=== PATIENT | female | born 1985 | race Caucasian/White ===

== ENCOUNTER 2019-10-20 11:31 | Observation (INO) | payer OTHER ==
[~2019-10-20] VITALS: Ht 157.5 cm; Wt 79.4 kg
[2019-10-20] MEDS ORDERED: PREN-380 PO (11:51)
[2019-10-20 13:29] VITALS: BP 104/60
[2019-10-20 13:42] LABS: BASOPHILS % (AUTO) 0.2 % (0.0-2.0); EOSINOPHILS # (AUTO) 0.1 K/uL (0-0.4); EOSINOPHILS % (AUTO) 0.6 % (0.0-4.0); HEMATOCRIT 35.5 % (36-48); LYMPHOCYTES # (AUTO) 2.2 K/uL (2.5-16.5); LYMPHOCYTES % (AUTO) 24.3 % (20.5-51.1); MEAN CORPUSCULAR HEMOGLOBIN 30 pg (27-31); MEAN CORPUSCULAR HGB CONC 34 g/dL (33-37); MEAN CORPUSCULAR VOLUME 87.9 fL (80-94); MONOCYTES # (AUTO) 0.3 K/uL (0.8-1.0); MONOCYTES % (AUTO) 3.7 % (1.7-9.3); NEUTROPHILS # (AUTO) 6.4 K/uL (1.8-7.7); NEUTROPHILS % (AUTO) 71.2 % (42.2-75.2); PLATELET COUNT (AUTO) 243 K/uL (140-450); RED BLOOD CELL COUNT(AUTO) 4.04 MIL/uL (4.20-5.40); RED CELL DISTRIBUTION WIDTH 14.1 % (11.6-13.7); WHITE BLOOD COUNT (AUTO) 8.9 K/uL (4.8-10.8)
[2019-10-20 13:47] LABS: APPEARANCE,URINE CLEAR (CLEAR); BILIRUBIN,URINE NEGATIVE (NEGATIVE); BLOOD, URINE NEGATIVE (NEGATIVE); COLOR,URINE ORANGE (YELLOW); LEUKOCYTE ESTERASE ,URINE NEGATIVE (NEGATIVE); NITRITE, URINE NEGATIVE (NEGATIVE); UGLUCOSE NEGATIVE (NEGATIVE)
[2019-10-20 14:03] LABS: ALBUMIN 2.6 g/dL (3.4-5.0); ANION GAP 12.9 (8-16); CARBON DIOXIDE 23.8 mmol/L (21-32); CREATININE 0.5 mg/dL (0.6-1.3); POTASSIUM 3.7 mmol/L (3.5-5.1); TOTAL BILIRUBIN 0.4 mg/dL (0.0-1.0)
[2019-10-20] MEDS: LACTATED RINGERS 1,000 ML IV SCH ×2 (14:20→19:25)
[2019-10-21] MEDS: LACTATED RINGERS 1,000 ML IV SCH ×2 (01:45→07:27)
--- NOTE | 2019-10-21 08:22 | NUR ---
PATIENT HAS BEEN SCREENED AND CATEGORIZED LOW NUTRITION RISK. PATIENT WILL BE SEEN WITHIN 7 DAYS OF ADMISSION. 10/26/[address]
== END 2019-10-21 07:45 | disposition home or self-care (01) ==
LOC: MLD 11:31
PROVIDERS: ADMIT Obstetrics & Gynecology; ATTEND Obstetrics & Gynecology
DX: Z34.90 Encounter for supervision of normal pregnancy, unspecified, unspecified trimester (principal); Z3A.36 36 weeks gestation of pregnancy
CPT/HCPCS: 36415; 76805; 76819; 80053; 81003; 85025; 86886; 86900; 86901; G0378; J7120; Q0092

== ENCOUNTER 2019-10-22 08:25 | Outpatient (CLI) | payer OTHER ==
[~2019-10-22 08:25] MED LIST: PREN-380 PO
[2019-10-22 09:56] LABS: BASOPHILS % (AUTO) 0.5 % (0.0-2.0); EOSINOPHILS # (AUTO) 0.1 K/uL (0-0.4); EOSINOPHILS % (AUTO) 0.7 % (0.0-4.0); HEMATOCRIT 34.5 % (36-48); LYMPHOCYTES # (AUTO) 1.8 K/uL (2.5-16.5); LYMPHOCYTES % (AUTO) 21.9 % (20.5-51.1); MEAN CORPUSCULAR HEMOGLOBIN 30 pg (27-31); MEAN CORPUSCULAR HGB CONC 35 g/dL (33-37); MEAN CORPUSCULAR VOLUME 85.4 fL (80-94); MONOCYTES # (AUTO) 0.3 K/uL (0.8-1.0); MONOCYTES % (AUTO) 3.2 % (1.7-9.3); NEUTROPHILS # (AUTO) 5.9 K/uL (1.8-7.7); NEUTROPHILS % (AUTO) 73.7 % (42.2-75.2); PLATELET COUNT (AUTO) 213 K/uL (140-450); RED BLOOD CELL COUNT(AUTO) 4.04 MIL/uL (4.20-5.40); RED CELL DISTRIBUTION WIDTH 14.4 % (11.6-13.7); WHITE BLOOD COUNT (AUTO) 8.1 K/uL (4.8-10.8)
[2019-10-22 09:57] LABS: APPEARANCE,URINE CLEAR (CLEAR); BILIRUBIN,URINE NEGATIVE (NEGATIVE); BLOOD, URINE NEGATIVE (NEGATIVE); COLOR,URINE YELLOW (YELLOW); LEUKOCYTE ESTERASE ,URINE NEGATIVE (NEGATIVE); NITRITE, URINE NEGATIVE (NEGATIVE); UGLUCOSE NEGATIVE (NEGATIVE)
[2019-10-22 10:42] LABS: ALBUMIN 2.6 g/dL (3.4-5.0); ANION GAP 10.2 (8-16); CARBON DIOXIDE 26.8 mmol/L (21-32); CREATININE 0.5 mg/dL (0.6-1.3); TOTAL BILIRUBIN 0.3 mg/dL (0.0-1.0)
== END 2019-10-22 22:27 | disposition home or self-care (01) ==
LOC: MLB 08:25
PROVIDERS: ATTEND Obstetrics & Gynecology
DX: Z01.818 Encounter for other preprocedural examination (principal); O82 Encounter for cesarean delivery without indication; Z37.0 Single live birth
CPT/HCPCS: 36415; 80053; 81003; 85025; 86886; 86900; 86901; 87086

== ENCOUNTER 2019-10-23 08:55 | Inpatient (IN) | payer OTHER ==
[~2019-10-23] VITALS: Ht 157.5 cm; Wt 79.4 kg
[2019-10-23] MEDS ORDERED: LACTATED RINGERS 1,000 ML IV SCH (10:28)
[2019-10-23] MEDS ORDERED: METHYLERGONOVINE 0.2 MG/ML AMP IM PRN (10:30)
[2019-10-23] MEDS ORDERED: CARBOPROST 250 MCG/ML AMP IM PRN (10:30)
[2019-10-23 10:37] VITALS: BP 100/62
[2019-10-23] MEDS ORDERED: INFLUENZA VACCINE QUAD 0.5 ML SYR IMVAC PRN (10:40)
[2019-10-23 12:25] LABS: APPEARANCE,URINE CLEAR (CLEAR); BILIRUBIN,URINE NEGATIVE (NEGATIVE); BLOOD, URINE NEGATIVE (NEGATIVE); COLOR,URINE YELLOW (YELLOW); LEUKOCYTE ESTERASE ,URINE NEGATIVE (NEGATIVE); NITRITE, URINE NEGATIVE (NEGATIVE); UGLUCOSE NEGATIVE (NEGATIVE)
[2019-10-23] MEDS ORDERED: OXYTOCIN 10 UNITS/ML VIAL ONE (12:45)
[2019-10-23] MEDS ORDERED: MIDAZOLAM 2 MG/2 ML VIAL ONE (12:45)
[2019-10-23] MEDS ORDERED: MORPHINE PRES FREE 10 MG/10 ML AMP IV ONE (12:45)
[2019-10-23] MEDS ORDERED: ONDANSETRON 4 MG/2 ML VIAL ONE (12:45)
[2019-10-23] MEDS ORDERED: ONDANSETRON 4 MG/2 ML VIAL IVP PRN ×2 (13:45)
[2019-10-23] MEDS ORDERED: diphenhydrAMINE 50 MG/ML VIAL IVP PRN ×2 (13:45)
[2019-10-23] MEDS ORDERED: NALBUPHINE 10 MG/ML AMP IVP PRN (13:45)
[2019-10-23] MEDS ORDERED: HYDROmorphone 1 MG/ML AMP IVP PRN (13:45)
[2019-10-23] MEDS ORDERED: NALOXONE 0.4 MG/ML VIAL IVP PRN ×3 (13:45)
[2019-10-23] MEDS ORDERED: MEPERIDINE 25 MG/ML SYR IVP PRN (13:45)
[2019-10-23] MEDS ORDERED: OXYTOCIN 20 UNITS/LR PREMIX 1,000 ML IV ONE ×2 (14:06→21:25)
[2019-10-23] MEDS: KETOROLAC 30 MG/ML VIAL IM/IVP SCH (18:49)
[2019-10-23] MEDS: OXYTOCIN 20 UNITS in LACTATED RINGERS 1,000 ML IV SCH (22:25)
[2019-10-24] MEDS: KETOROLAC 30 MG/ML VIAL IM/IVP SCH ×3 (00:19→12:47)
[2019-10-24] MEDS ORDERED: OXYTOCIN 20 UNITS/LR PREMIX 1,000 ML IV ONE (06:09)
[2019-10-24] MEDS: OXYTOCIN 20 UNITS in LACTATED RINGERS 1,000 ML IV SCH (06:17)
[2019-10-24] MEDS ORDERED: BISACODYL 10 MG SUPP RC PRN (07:40)
[2019-10-24 08:42] LABS: BASOPHILS % (AUTO) 0.1 % (0.0-2.0); EOSINOPHILS # (AUTO) 0.1 K/uL (0-0.4); EOSINOPHILS % (AUTO) 1.2 % (0.0-4.0); HEMATOCRIT 30.6 % (36-48); LYMPHOCYTES % (AUTO) 9.7 % (20.5-51.1); MEAN CORPUSCULAR HEMOGLOBIN 30 pg (27-31); MEAN CORPUSCULAR HGB CONC 36 g/dL (33-37); MEAN CORPUSCULAR VOLUME 84.7 fL (80-94); MONOCYTES # (AUTO) 0.3 K/uL (0.8-1.0); PLATELET COUNT (AUTO) 197 K/uL (140-450); RED BLOOD CELL COUNT(AUTO) 3.62 MIL/uL (4.20-5.40); RED CELL DISTRIBUTION WIDTH 13.9 % (11.6-13.7); WHITE BLOOD COUNT (AUTO) 10.5 K/uL (4.8-10.8)
--- NOTE | 2019-10-24 09:05 | NUR ---
PATIENT HAS BEEN SCREENED AND CATEGORIZED LOW NUTRITION RISK. PATIENT WILL BE SEEN WITHIN 7 DAYS OF ADMISSION. 10/30/[address]
[2019-10-24] MEDS: SIMETHICONE 80 MG TAB.CHEW PO PRN ×3 (09:26→17:44)
[2019-10-24] MEDS: HYDROcodone/APAP 5/325 MG 1 TAB TAB PO PRN (17:44)
[2019-10-25] MEDS: HYDROcodone/APAP 5/325 MG 1 TAB TAB PO PRN ×3 (02:12→22:04)
[2019-10-25] MEDS: IBUPROFEN 800 MG TAB PO PRN (07:08)
[2019-10-25] MEDS: SIMETHICONE 80 MG TAB.CHEW PO PRN (09:02)
[2019-10-26] MEDS: HYDROcodone/APAP 5/325 MG 1 TAB TAB PO PRN (04:27)
[2019-10-26] MEDS: IBUPROFEN 800 MG TAB PO PRN (13:12)
[2019-10-27] MEDS: IBUPROFEN 800 MG TAB PO PRN (02:00)
[2019-10-27] MEDS: HYDROcodone/APAP 5/325 MG 1 TAB TAB PO PRN (06:00)
[2019-10-27] MEDS ORDERED: CAMERA MC ONE (06:41)
== END 2019-10-27 13:25 | disposition home or self-care (01) | DRG 540 ==
LOC: MLD 08:55 → MFCC 12:45
PROVIDERS: ADMIT Obstetrics & Gynecology; ATTEND Obstetrics & Gynecology
PROC: 0UB70ZZ Excision of Bilateral Fallopian Tubes, Open Approach (ICD-10-PCS; 2019-10-23)
PROC: 10D00Z1 Extraction of Products of Conception, Low, Open Approach (ICD-10-PCS; principal; 2019-10-23 12:00)
DX: O34.211 Maternal care for low transverse scar from previous cesarean delivery (principal); Z30.2 Encounter for sterilization; Z37.0 Single live birth; Z3A.38 38 weeks gestation of pregnancy
CPT/HCPCS: 36415; 51702; 81003; 85025; 86592; 87081; 88302; J0690; J1885; J2250; J2270; J2405; J2590; J7060; J7120